=== PATIENT | female | born 1975 | race Two or more races ===

== ENCOUNTER 2024-12-08 08:15 | Inpatient (IN) | payer OTHER ==
[~2024-12-08] VITALS: Ht 149.9 cm; Wt 57.6 kg
[2024-12-10] MEDS ORDERED: CLINDAMYCIN PHOSPHATE 150 MG/ML (900mg) ONE (10:27)
[2024-12-10] MEDS ORDERED: GENTAMICIN SULFATE 40 MG/ML VIAL ONE (10:28)
[2024-12-10] MEDS ORDERED: CHLORHEXIDINE GLUCONATE 120 ML BOTTLE TOP ONE ×2 (11:55→13:15)
[2024-12-10] MEDS ORDERED: POVIDONE-IODINE 118 ML BOTT TOP ONE ×2 (11:56→13:15)
[2024-12-10] MEDS ORDERED: CLINDAMYCIN PHOSPHATE 150 MG/ML (900mg) IV ONE (13:15)
[2024-12-10] MEDS ORDERED: GENTAMICIN SULFATE 40 MG/ML VIAL IV ONE (13:15)
[2024-12-10] MEDS ORDERED: HEMOSTATIC MATRIX 1 KIT KIT TOP ONE (15:33)
[2024-12-10] MEDS ORDERED: SURGIFLO APPLICATOR 1 EACH APPL TOP ONE (15:33)
[2024-12-10] MEDS ORDERED: RINGERS SOLUTION,LACTATED 1,000 ML IV SCH (16:45)
[2024-12-10] MEDS ORDERED: ONDANSETRON HCL 2 MG/ML VIAL IV PRN (16:45)
[2024-12-10] MEDS ORDERED: GABAPENTIN 300 MG CAPSULE PO SCH (17:00)
[2024-12-10] MEDS ORDERED: KETOROLAC TROMETHAMINE 30 MG VIAL IV SCH (18:00)
[2024-12-10] MEDS ORDERED: ACETAMINOPHEN 500 MG GEL..CAP PO SCH (18:00)
[2024-12-10] MEDS ORDERED: MORPHINE SULFATE 4 MG/ML VIAL IV ONE (20:10)
[2024-12-10 22:10] VITALS: BP 147/75
[2024-12-10 22:17] VITALS: BP 147/75
[2024-12-11 00:45] VITALS: BP 116/65
[2024-12-11 04:47] VITALS: BP 111/65
[2024-12-11 06:16] LABS: HEMATOCRIT 35.9 % (36.0-45.00); HEMOGLOBIN 11.9 g/dL (12.0-15.00); MEAN CELL VOLUME 77.2 fL (80.00-100.00); MEAN CORPUSCULAR HEMOGLOBIN 25.6 pg (27.00-32.0); MEAN CORPUSCULAR HGB CONC 33.2 g/dl (32.0-36.0); PLATELET COUNT 162 K/uL (150-450); RED BLOOD COUNT 4.65 M/uL (4.00-6.00); RED CELL DISTRIBUTION WIDTH 18.4 % (11.5-14.5)
[2024-12-11 09:18] VITALS: BP 109/66
== END 2024-12-11 09:52 | disposition home or self-care (01) | DRG 743 ==
LOC: SURG 12-10 07:00 → O/R 12-10 08:57 → OB/GYN 12-10 18:27
PROVIDERS: ADMIT Student in an Organized Health Care Education/Training Program; ATTEND Student in an Organized Health Care Education/Training Program
PROC: 0TNB4ZZ Release Bladder, Percutaneous Endoscopic Approach (ICD-10-PCS; 2024-12-10)
PROC: 0DNU4ZZ Release Omentum, Percutaneous Endoscopic Approach (ICD-10-PCS; 2024-12-10)
PROC: 0DNW4ZZ Release Peritoneum, Percutaneous Endoscopic Approach (ICD-10-PCS; 2024-12-10)
PROC: 0UT74ZZ Resection of Bilateral Fallopian Tubes, Percutaneous Endoscopic Approach (ICD-10-PCS; 2024-12-10)
PROC: 0TJB8ZZ Inspection of Bladder, Via Natural or Artificial Opening Endoscopic (ICD-10-PCS; 2024-12-10)
PROC: 0UT94ZZ Resection of Uterus, Percutaneous Endoscopic Approach (ICD-10-PCS; principal; 2024-12-10 07:00)
DX: D25.0 Submucous leiomyoma of uterus (principal); D25.2 Subserosal leiomyoma of uterus; N80.03 Adenomyosis of the uterus; N93.9 Abnormal uterine and vaginal bleeding, unspecified; N94.6 Dysmenorrhea, unspecified

== ENCOUNTER 2024-12-18 14:13 | Inpatient (IN) | payer OTHER ==
[~2024-12-18] VITALS: Ht 157.5 cm; Wt 57.6 kg
[2024-12-18] MEDS ORDERED: SYNTHROID50 MCG (14:24)
[2024-12-18] MEDS ORDERED: 0.9 % SODIUM CHLORIDE 500 ML IV ONE (15:30)
[2024-12-18 16:39] LABS: HEMATOCRIT 38.8 % (36.0-45.00); HEMOGLOBIN 12.6 g/dL (12.0-15.00); MEAN CELL VOLUME 76.8 fL (80.00-100.00); MEAN CORPUSCULAR HGB CONC 32.5 g/dl (32.0-36.0); PLATELET COUNT 332 K/uL (150-450); RED BLOOD COUNT 5.05 M/uL (4.00-6.00); RED CELL DISTRIBUTION WIDTH 18.4 % (11.5-14.5)
[2024-12-18 16:44] LABS: ERYTHROCYTE SEDIMENTATION RATE 100 mm/hr
[2024-12-18 17:01] LABS: ALBUMIN 3.3 gm/dL (3.4-5.0); BILIRUBIN TOTAL 0.22 mg/dL (0.3-1.2); CALCIUM 9.3 mg/dL (8.5-10.1); CREATININE SERUM 0.87 mg/dL (0.55-1.02); GFR 69.49; GLOBULINA 4.4 G/DL (2.4-3.5); POTASSIUM 4.02 mEq/L (3.5-5.1); TOTAL PROTEIN 7.7 gm/dL (6.4-8.2)
[2024-12-18 17:32] LABS: PH,URINE 5.5 (5.0-8.0); URINE APPEARANCE Clear; URINE BILIRRUBIN Negative (NEGATIVE); URINE BLOOD Negative; URINE COLOR Yellow; URINE GLUCOSE Negative (NEGATIVE); URINE KETONE Trace (NEGATIVE); URINE LEUKOCYTE Small; URINE NITRATE Negative; URINE PROTEIN Trace (NEGATIVE); URINE UROBILINOGEN 0.2 E.U./dl
[2024-12-18 17:33] LABS: URINE BACTERIA 41.6 uL (0.0-1933); URINE EPITHELIAL CELLS 4.4 uL (0.0-38.8); URINE RBC 7.8 uL (0.0-20.8); URINE WBC 37.9 uL (0.0-23.2)
[2024-12-18 17:55] LABS: URINE CAST 0.29 uL (0.0-1.40)
[2024-12-18] MEDS ORDERED: METRONIDAZOLE/SODIUM CHLORIDE 500 MG/100 ML PIGGYBACK IV ONE (18:45)
[2024-12-18] MEDS ORDERED: 0.9 % SODIUM CHLORIDE 1,000 ML IV SCH (21:45)
[2024-12-18] MEDS ORDERED: ACETAMINOPHEN 500 MG GEL..CAP PO PRN (21:45)
[2024-12-18] MEDS ORDERED: ONDANSETRON HCL 4 MG in 0.9 % SODIUM CHLORIDE 50 ML IV PRN (21:45)
[2024-12-19] MEDS ORDERED: METRONIDAZOLE/SODIUM CHLORIDE 100 ML IV SCH (01:00)
[2024-12-19 02:43] LABS: INR 0.99; PARTIAL THROMBOPLASTIN TIME 29.1 SECONDS (22.0-34.0); PROTHROMBIN TIME 10.8 SECONDS (9.0-11.5)
[2024-12-19] MEDS ORDERED: LEVOTHYROXINE SODIUM 50 MCG TABLET PO SCH (06:00)
[2024-12-19 08:00] VITALS: BP 115/66; O2SAT 99
[2024-12-19] MEDS ORDERED: FAMOTIDINE/PF 20 MG in 0.9 % SODIUM CHLORIDE 8 ML IV PUSH SCH (09:00)
[2024-12-19] MEDS ORDERED: CIPROFLOXACIN IN 5 % DEXTROSE 200 ML IV SCH (09:00)
[2024-12-19 16:00] VITALS: BP 118/71; O2SAT 100
[2024-12-19] MEDS ORDERED: levoFLOXacin IN DEXTROSE 5 % 5 MG/ML PIGGYBAG IV SCH (17:28)
[2024-12-20 00:39] VITALS: BP 131/83; O2SAT 98
[2024-12-20] MEDS ORDERED: GABAPENTIN 300 MG CAPSULE PO PRN (07:45)
[2024-12-20] MEDS ORDERED: IBUprofen 600 MG TABLET PO PRN (07:45)
[2024-12-20 08:00] VITALS: BP 112/69; O2SAT 100
[2024-12-20 10:18] LABS: HEMATOCRIT 34.9 % (36.0-45.00); HEMOGLOBIN 11.6 g/dL (12.0-15.00); MEAN CELL VOLUME 76.2 fL (80.00-100.00); MEAN CORPUSCULAR HEMOGLOBIN 25.2 pg (27.00-32.0); MEAN CORPUSCULAR HGB CONC 33.1 g/dl (32.0-36.0); PLATELET COUNT 290 K/uL (150-450); RED BLOOD COUNT 4.59 M/uL (4.00-6.00); RED CELL DISTRIBUTION WIDTH 17.9 % (11.5-14.5)
[2024-12-20 10:46] LABS: CALCIUM 8.9 mg/dL (8.5-10.1); CREATININE SERUM 0.69 mg/dL (0.55-1.02); GFR 90.81; POTASSIUM 4.71 mEq/L (3.5-5.1)
[2024-12-20 16:43] VITALS: BP 129/73; O2SAT 99
[2024-12-21 00:42] VITALS: BP 109/71; O2SAT 99
[2024-12-21 06:30] LABS: HEMATOCRIT 35.1 % (36.0-45.00); HEMOGLOBIN 11.5 g/dL (12.0-15.00); MEAN CELL VOLUME 77.1 fL (80.00-100.00); MEAN CORPUSCULAR HEMOGLOBIN 25.2 pg (27.00-32.0); MEAN CORPUSCULAR HGB CONC 32.7 g/dl (32.0-36.0); PLATELET COUNT 280 K/uL (150-450); RED BLOOD COUNT 4.56 M/uL (4.00-6.00); RED CELL DISTRIBUTION WIDTH 17.8 % (11.5-14.5)
[2024-12-21 08:42] VITALS: BP 125/73; O2SAT 97
[2024-12-21 17:07] VITALS: BP 130/82; O2SAT 100
[2024-12-21] MEDS ORDERED: fentaNYL CITRATE 50 MCG/ML AMPUL IV PUSH ONE (17:15)
[2024-12-21] MEDS ORDERED: MIDAZOLAM HCL 2 MG/2 ML VIAL IV PUSH ONE (17:15)
[2024-12-22] VITALS: BP 93/55; O2SAT 98
[2024-12-22 08:00] VITALS: BP 108/71; O2SAT 100
[2024-12-22 18:06] VITALS: BP 133/87; O2SAT 100
[2024-12-22] MEDS ORDERED: MIDAZOLAM HCL 2 MG/2 ML VIAL IV PUSH ONE (19:15)
[2024-12-22] MEDS ORDERED: fentaNYL CITRATE 50 MCG/ML AMPUL IV PUSH ONE (19:15)
[2024-12-23 01:37] VITALS: BP 116/68; O2SAT 100
[2024-12-23 06:56] LABS: HEMATOCRIT 34.5 % (36.0-45.00); HEMOGLOBIN 11.6 g/dL (12.0-15.00); MEAN CELL VOLUME 75.8 fL (80.00-100.00); MEAN CORPUSCULAR HEMOGLOBIN 25.4 pg (27.00-32.0); MEAN CORPUSCULAR HGB CONC 33.5 g/dl (32.0-36.0); PLATELET COUNT 235 K/uL (150-450); RED BLOOD COUNT 4.54 M/uL (4.00-6.00); RED CELL DISTRIBUTION WIDTH 18.3 % (11.5-14.5)
== END 2024-12-23 10:48 | disposition home or self-care (01) | DRG 759 ==
LOC: ER 14:14 → SURH 22:00
PROVIDERS: General Practice; ADMIT Student in an Organized Health Care Education/Training Program; ATTEND Student in an Organized Health Care Education/Training Program
PROC: BW21ZZZ Computerized Tomography (CT Scan) of Abdomen and Pelvis (ICD-10-PCS; principal; 2024-12-18)
PROC: BW21YZZ Computerized Tomography (CT Scan) of Abdomen and Pelvis using Other Contrast (ICD-10-PCS; 2024-12-18)
PROC: BU4CZZZ Ultrasonography of Uterus and Ovaries (ICD-10-PCS; 2024-12-18)
PROC: 0W9J3ZZ Drainage of Pelvic Cavity, Percutaneous Approach (ICD-10-PCS; 2024-12-21)
PROC: BW2GZZZ Computerized Tomography (CT Scan) of Pelvic Region (ICD-10-PCS; 2024-12-21)
DX: N73.8 Other specified female pelvic inflammatory diseases (principal); Z90.710 Acquired absence of both cervix and uterus